=== PATIENT | female | born 1945 | race African-American/Black ===

== ENCOUNTER → 2020-11-27 00:13 | Outpatient (CLI) | payer MEDICARE, SELFPAY ==
[2020-11-27 20:45] LABS: SARS-CoV-2 RNA PCR Negative
== END ==
PROVIDERS: Visit Provider Obstetrics & Gynecology
DX: Z01.812 Encounter for preprocedural laboratory examination (principal); Z20.822 Contact with and (suspected) exposure to COVID-19
CPT/HCPCS: C9803; U0003; U0005

== ENCOUNTER 2020-11-27 07:38 | Outpatient (CLI) | payer MEDICARE, SELFPAY ==
--- NOTE | 2020-11-27 08:00 | ECG_ITS ---
Measurements Intervals [place] Rate: 65 P: 58 IA: 179 QRS: -32 QRSD: 146 T: 13 QT: 438 QTc: 458 Interpretive Statements SINUS RHYTHM LEFT AXIS DEVIATION RIGHT BUNDLE BRANCH BLOCK BASELINE ARTIFACT- I, II, III, AVR, AVL, AVF ABNORMAL ECG Electronically Signed On 11-27-2020 8:08:02 CDT by Bobby Mckenna D.O.
[2020-11-27 08:31] LABS: Anion Gap 7 mmol/L (8-16); Blood Urea Nitrogen 38 mg/dL (7-17); Calcium 9.4 mg/dL (8.4-10.2); Carbon Dioxide 28 mmol/L (22-30); Chloride 107 mmol/L (98-107); Estimated Glomerular Filt Rate 48; Glucose 166 mg/dL (65-105); Potassium 4.1 mmol/L (3.4-5.0); Sodium 142 mmol/L (137-145)
== END 2020-11-27 07:39 | disposition home or self-care (01) ==
LOC: ANHSURGERY 07:46
PROVIDERS: Anesthesiology; PCP Family Medicine; Visit Provider Obstetrics & Gynecology
DX: E78.5 Hyperlipidemia, unspecified (principal); I10 Essential (primary) hypertension; Z79.899 Other long term (current) drug therapy; Z01.818 Encounter for other preprocedural examination; I45.10 Unspecified right bundle-branch block
CPT/HCPCS: 36415; 80048; 93005

== ENCOUNTER 2020-11-30 00:51 | Day surgery (SDC) | payer MEDICARE, SELFPAY ==
[2020-11-22 09:00] VITALS: BMI 35.5
--- NOTE | 2020-11-30 09:39 | PM.HPGS ---
History of Present Illness History of Present Illness Consent: Risks, benefits, and alternatives have been discussed and questions answered. Patient agrees to proceed with procedure. Chief complaint: Thickened Endometrial Lining Narrative: Keyonna Sanderson is a 75 year old female presented with onset of pelvic pain. Ultrasound done and showed thickened endometrium. Endemetrial biopsy recomended at that time patient declined. Repeat ultrasound done 3 months later and thickened lined still present 7 mm. Patient also reported increased vaginal discharge. Review of Systems Review of Systems: Narrative: back pain PMFSH Past Medical History Medical History (Updated 11/30/20 @ 09:51 by Luis Armando Wagner MD) Thickened endometrium Family History Family History (Updated 03/14/16 @ 23:19 by DOCTOR UNKNOWN) Father Family history of diabetes mellitus in first degree relative Patient's father is Mother Family history of diabetes mellitus in first degree relative Social History Social History Smoking status: Never smoker Alcohol intake: never Substance use: never Substance use type: does not use Living arrangements: alone Spiritual care concerns: No Meds Home Medications and Allergies Home Medications Medication Instructions Recorded Confirmed Type allopurinol 100 mg PO DAILY 11/22/20 11/22/20 History aspirin [Adult Aspirin] 81 mg PO DAILY 11/22/20 11/22/20 History ergocalciferol (vitamin D2) 25,000 unit PO 2XW 11/22/20 11/22/20 History [Vitamin D2] ezetimibe 10 mg PO DAILY 11/22/20 11/22/20 History hydrochlorothiazide 12.5 mg PO DAILY 11/22/20 11/22/20 History latanoprost 1 drp EACH EYE QPM 11/22/20 11/22/20 History losartan 100 mg PO DAILY 11/22/20 11/22/20 History magnesium 250 mg PO DAILY 11/22/20 11/22/20 History meclizine 25 mg PO BID PRN 11/22/20 11/22/20 History pantoprazole 20 mg PO DAILY 11/22/20 11/22/20 History verapamil 300 mg PO DAILY 11/22/20 11/22/20 History Allergies Allergy/AdvReac Type Severity Reaction Status Date / Time acetaminophen Allergy Mild Jittery Verified 11/22/20 08:55 [From Darvocet-N] propoxyphene Allergy Mild Jittery Verified 11/22/20 08:55 [From Darkokot-N] Sulfa (Sulfonamide Allergy Mild Itching Verified 11/22/20 08:55 Antibiotics) Exam Resp: Effort & Inspection: normal respiratory effort Cardio: Rate: regular rate Rhythm: regular rhythm GI: Inspection: normal to inspection : External Female Exam: normal external appearance Speculum Exam - Cervix: normal appearance of the cervix Bimanual exam- vagina & uterus: normal bimanual exam Assessment and Plan Assessment and plan (1) Thickened endometrium: Code(s): R93.89 - Abnormal findings on diagnostic imaging of other specified body structures Status: Acute Assessment and Plan: scheduled for a hysteroscopy with dilation and curettage. risk and benefits reviewed with patient in detail.
--- NOTE | 2020-11-30 11:37 | WPDHPUPDATE1 ---
History and Physical Update Update Date/Time: 11/30/20 11:37 History and Physical has been reviewed, including an updated exam of the patient. There are NO changes in the patient's condition. Risks, benefits, and alternatives have been discussed and questions answered. Patient agrees to proceed with procedure.
[2020-11-30 12:15] VITALS: BMI 36.3
[2020-11-30 12:16] VITALS: BP 151/75; PULSE 68; RESP 18; TEMP 36.6; O2SAT 98
[2020-11-30] MEDS: LACTATED RINGERS 1,000 ML 30 ML IV CONT (12:26)
[2020-11-30 12:32] LABS: Glucose Point of Care 111 (65-105)
[2020-11-30] MEDS: ACETAMINOPHEN 500 MG TABLET 1000 MG PO (12:32)
--- NOTE | 2020-11-30 12:36 | WPDANESEPPF ---
Anes - Initial Pre Proc Eval Procedure: Operation Date: 11/30/20 13:30 Proposed Procedures p Hysteroscopy Dilation and Curettage - Luis Armando Wagner MD Date/Time: 11/30/20 12:36 Surgeon: Luis Armando Wagner MD Pre Op Diagnosis: Thickened Endometrial Lining Patient Data Age: 75 Gender: F Height: 5 ft Weight: 84.4 kg Last Vital Signs Temp 36.6 C 11/30/20 12:16 Pulse 68 11/30/20 12:16 Resp 18 11/30/20 12:16 BP 151/75 H 11/30/20 12:16 Pulse Ox 98 11/30/20 12:16 Allergies Allergy/AdvReac Type Severity Reaction Status Date / Time propoxyphene Allergy Mild Jittery Verified 11/30/20 11:58 [From Darvocet-N] Sulfa (Sulfonamide Allergy Mild Itching Verified 11/30/20 11:58 Antibiotics) Home Medications Medication Instructions Recorded Confirmed Type allopurinol 100 mg PO DAILY 11/22/20 11/30/20 History aspirin [Adult Aspirin] 81 mg PO DAILY 11/22/20 11/30/20 History ergocalciferol (vitamin D2) 25,000 unit PO 2XW 11/22/20 11/30/20 History [Vitamin D2] ezetimibe 10 mg PO DAILY 11/22/20 11/30/20 History hydrochlorothiazide 12.5 mg PO DAILY 11/22/20 11/30/20 History latanoprost 1 drp EACH EYE QPM 11/22/20 11/30/20 History losartan 100 mg PO DAILY 11/22/20 11/30/20 History magnesium 250 mg PO DAILY 11/22/20 11/30/20 History meclizine 25 mg PO BID PRN 11/22/20 11/30/20 History pantoprazole 20 mg PO DAILY 11/22/20 11/30/20 History verapamil 300 mg PO DAILY 11/22/20 11/30/20 History Laboratory Tests 11/30/20 12:23 POC Capillary Glucose 111 mg/dl H mg/dl (65-105) Patient hx anesthesia problems: none Family hx anesthesia problems: none PMFSH Past Medical History Medical History Diabetes Hyperlipidemia Hypertension Thickened endometrium Family History Family History Father Family history of diabetes mellitus in first degree relative Patient's father is Mother Family history of diabetes mellitus in first degree relative Social History Social History Smoking status: Never smoker Alcohol intake: never Substance use: never Substance use type: does not use Living arrangements: alone Spiritual care concerns: No Anes - Eval Final PreProcedure Day of Procedure 11/30/20 12:36 Patient weight: obese Heart: regular rate and rhythm Lungs: clear to auscultation Airway: Mallampati scale class II Neurological: alert and oriented Last oral intake: >/= 8 hours ASA classification: III Emergent: no Anesthetic plan: proceed Anesthesia type and monitoring: general GIVS and standard monitoring Informed Consent: The patient's anesthetic plan and its attendant risks and benefits were discussed with the patient/family/POA. Questions were solicited and answers provided to the satisfaction of the patient/family/POA.
[2020-11-30] MEDS: LIDOCAINE HCL 1% LOCAL INJ 20 ML VIAL 50 ML INFILTRATE (13:30)
--- NOTE | 2020-11-30 13:34 | PM.PROC ---
Procedure Note - Detailed Date of procedure: 11/30/20 Pre-op diagnosis: Thickened Endometrial Lining Post-op diagnosis: same Procedure performed: Hysteroscopy with MyoSure and dilation and curettage Description of procedure: patient was taken to the at the OR with IV running she was prepared and draped in a normal sterile fashion. And placed in a lithotomy position a bivalve speculum was placed into the vagina. The anterior lip of the cervix was grasped with a single-tooth tenaculum the cervix was injected at the 2 and 10 o'clock position with 5cc of lidocaine bilaterally the uterus was sounded to 7cm and the cervix was serially dilated with Hegar dilators to a 7. The hysteroscope was introduced and noted polyp in the posterior wall and the anterior wall of the uterus. Hysteroscope was removed with MyoSure device was attached to the hysteroscope and reintroduced and the polyps were transected with the MyoSure device under direct visualization with the hysteroscope. The hysteroscope and MyoSure were removed a sharp curettage was performed in all 4 quadrants of the uterus and sent to pathology. Patient tolerated the procedure well was taken to recovery room in stable condition. Anesthesia: MAC and local Surgeon: Luis Armando Wagner MD Estimated blood loss (mL): 10 Drains: No Packing: No Pathology: yes Complications: None Condition: stable Disposition: PACU Findings: polyp anterior and posterior wall.
[2020-11-30 13:37] VITALS: BP 138/73; PULSE 67; RESP 20
[2020-11-30 14:00] VITALS: BP 142/68; PULSE 65; RESP 20
[2020-11-30 14:30] VITALS: BP 134/68; PULSE 59; RESP 20
[2020-11-30 14:45] VITALS: BP 134/68; PULSE 60; RESP 20
== END 2020-11-30 14:46 | disposition home or self-care (01) ==
PROVIDERS: PCP Family Medicine; Visit Provider Obstetrics & Gynecology
PROC: 0U5B8ZZ Destruction of Endometrium, Via Natural or Artificial Opening Endoscopic (ICD-10-PCS; CPT 58563; principal; 2020-11-30 13:30)
DX: R93.89 Abnormal findings on diagnostic imaging of other specified body structures (principal); N84.0 Polyp of corpus uteri; E11.9 Type 2 diabetes mellitus without complications; E78.5 Hyperlipidemia, unspecified; E66.9 Obesity, unspecified; Z68.36 Body mass index [BMI] 36.0-36.9, adult; I10 Essential (primary) hypertension; Z79.82 Long term (current) use of aspirin
CPT/HCPCS: 58558; 36415; 80048; 82948; 88305; 93005; A9270; C9803; J2704; J3010; J7030; J7120; U0003; U0005